=== PATIENT | male | born 1935 | race Caucasian/White ===

== ENCOUNTER 2018-06-13 23:11 | Inpatient (IN) | payer MEDICARE, BC ==
[2018-06-13] MEDS: ONDANSETRON 4 MG INJ IV (23:25)
[2018-06-13] MEDS: morphine 4 MG/ML VIAL IV (23:26)
[2018-06-13 23:46] LABS: ADD MAN DIFF? NO
[2018-06-13 23:49] LABS: WHITE BLOOD COUNT 15.6 10^3/ul (4.8-10.8)
[2018-06-13 23:49] LABS: BASOPHIL # 0.1 10^3/ul (0.0-0.1); BASOPHILS % 0.4 % (0.0-2.0); EOSINOPHILS # 0.2 10^3/ul (0.0-0.5); EOSINOPHILS % 1.3 % (0.0-7.0); HEMATOCRIT 47.7 % (42.0-52.0); HEMOGLOBIN 15.4 g/dl (14.0-18.0); LYMPHOCYTES # 3.6 10^3/ul (0.8-2.9); LYMPHOCYTES % 23.1 % (15.0-51.0); MEAN CORPUSCULAR HGB CONC 32.3 g/dl (32.0-37.0); MEAN CORPUSCULAR VOLUME 92.8 fl (82.0-101.0); MEAN PLATELET VOLUME 8.6 fl (7.4-10.4); MONOCYTE # 0.7 10^3/ul (0.3-0.9); MONOCYTES % 4.6 % (0.0-11.0); NEUTROPHILS % 70.2 % (39.0-77.0); PLATELET COUNT 296 10^3/UL (140-415); RED BLOOD COUNT 5.14 10^6/ul (4.70-6.10); RED CELL DISTRIBUTION WIDTH 13.2 % (11.5-14.5)
[2018-06-14 00:09] LABS: INR 0.86; PROTIME 11.8 Sec (11.9-14.9); PT RATIO 0.9
[2018-06-14 00:10] LABS: PARTIAL THROMBOPLASTIN TIME 28.7 Sec (23.0-35.0)
[2018-06-14] MEDS: morphine 4 MG/ML VIAL IV (00:10)
[2018-06-14 00:14] LABS: ALANINE AMINOTRANSFERASE 30 IU/L (13-69); ALBUMIN 3.8 g/dl (3.3-4.9); ALBUMIN/GLOBULIN RATIO 1.15; ALKALINE PHOSPHATASE 88 IU/L (42-121); ANION GAP 15 (5-13); ASPARTATE AMINO TRANSFERASE 25 IU/L (15-46); BILIRUBIN,INDIRECT 0.2 mg/dl (0-1.1); BILIRUBIN,TOTAL 0.2 mg/dl (0.2-1.3); BLOOD UREA NITROGEN 31 mg/dl (7-20); CALCIUM 9.6 mg/dl (8.4-10.2); CARBON DIOXIDE 21 mmol/L (21-31); CHLORIDE 106 mmol/L (97-110); GLUCOSE 163 mg/dl (70-220); POTASSIUM 4.5 mmol/L (3.5-5.1); SODIUM 142 mmol/L (135-144); TOTAL PROTEIN 7.1 g/dl (6.1-8.1)
[2018-06-14 00:25] LABS: TROPONIN-I < 0.012 ng/ml (0.000-0.120)
[2018-06-14] MEDS: SOD CHLORIDE 0.9% IV (00:41)
[2018-06-14] MEDS: PIPER-TAZO 3.375 GM IV (PMX) 100 ML IVPB (01:04)
[2018-06-14] MEDS: VANCOMYCIN 1 GM (PMX) 250 ML IVPB (02:14)
[2018-06-14] MEDS ORDERED: NACL 0.9% 3 ML SYG IV (02:30)
[2018-06-14] MEDS ORDERED: HYDROCODONE/APAP (5/325) TAB PO (02:30)
[2018-06-14] MEDS: HYDROCODONE/APAP (5/325) TAB PO (03:39)
[2018-06-14] MEDS ORDERED: PENDING SANTYL ORDER FOR WOUND CARE XX (05:00)
[2018-06-14 05:22] LABS: ADD MAN DIFF? NO
[2018-06-14 05:40] LABS: WHITE BLOOD COUNT 18.3 10^3/ul (4.8-10.8)
[2018-06-14 05:40] LABS: BASOPHILS % 0.1 % (0.0-2.0); EOSINOPHILS % 0.1 % (0.0-7.0); HEMATOCRIT 39.3 % (42.0-52.0); HEMOGLOBIN 12.5 g/dl (14.0-18.0); LYMPHOCYTES # 0.7 10^3/ul (0.8-2.9); LYMPHOCYTES % 3.9 % (15.0-51.0); MEAN CORPUSCULAR HEMOGLOBIN 30.3 pg (29.0-33.0); MEAN CORPUSCULAR HGB CONC 31.8 g/dl (32.0-37.0); MEAN CORPUSCULAR VOLUME 95.2 fl (82.0-101.0); MEAN PLATELET VOLUME 8.7 fl (7.4-10.4); MONOCYTE # 0.3 10^3/ul (0.3-0.9); MONOCYTES % 1.8 % (0.0-11.0); NEUTROPHIL # 17.1 10^3/ul (1.6-7.5); NEUTROPHILS % 93.6 % (39.0-77.0); PLATELET COUNT 199 10^3/UL (140-415); RED BLOOD COUNT 4.13 10^6/ul (4.70-6.10); RED CELL DISTRIBUTION WIDTH 13.2 % (11.5-14.5)
[2018-06-14 05:48] LABS: ALANINE AMINOTRANSFERASE 31 IU/L (13-69); ALBUMIN/GLOBULIN RATIO 1.07; ALKALINE PHOSPHATASE 65 IU/L (42-121); ANION GAP 10 (5-13); ASPARTATE AMINO TRANSFERASE 30 IU/L (15-46); BILIRUBIN,INDIRECT 0.4 mg/dl (0-1.1); BILIRUBIN,TOTAL 0.4 mg/dl (0.2-1.3); BLOOD UREA NITROGEN 28 mg/dl (7-20); CALCIUM 8.8 mg/dl (8.4-10.2); CARBON DIOXIDE 25 mmol/L (21-31); CHLORIDE 110 mmol/L (97-110); CHOL/HDL RATIO 4.6 RATIO; CHOLESTEROL 150 mg/dl (100-200); GLUCOSE 99 mg/dl (70-220); HDL CHOLESTEROL 32 mg/dl (31-75); LDL CHOLESTEROL,CALCULATED 88 mg/dl; MAGNESIUM 1.9 mg/dl (1.7-2.5); POTASSIUM 4.5 mmol/L (3.5-5.1); SODIUM 145 mmol/L (135-144); TOTAL PROTEIN 5.8 g/dl (6.1-8.1); TRIGLYCERIDES 148 mg/dl (0-149)
[2018-06-14 06:09] LABS: LACTIC ACID 3.1 mmol/L (0.5-2.0)
[2018-06-14 06:16] LABS: THYROID STIMULATING HORMONE 0.489 MIU/L (0.465-4.680)
[2018-06-14] MEDS: HEPARIN 5,000 UNIT/1 ML VIAL SC ×2 (09:06→21:12)
[2018-06-14] MEDS: CEFEPIME 2GM/50 ML (PMX) 50 ML IVPB ×2 (10:27→20:59)
[2018-06-14] MEDS: BALSAM PERU/CASTOR OIL 60 GM TUBE TOP (20:59)
[2018-06-15] MEDS: ALBUTEROL/IPRATROPIUM (NEB) 3 ML AMP HHN (00:53)
[2018-06-15 07:05] LABS: ADD MAN DIFF? NO
[2018-06-15 07:12] LABS: WHITE BLOOD COUNT 11.8 10^3/ul (4.8-10.8)
[2018-06-15 07:12] LABS: BASOPHILS % 0.3 % (0.0-2.0); EOSINOPHILS # 0.3 10^3/ul (0.0-0.5); EOSINOPHILS % 2.5 % (0.0-7.0); HEMATOCRIT 37.9 % (42.0-52.0); HEMOGLOBIN 12.4 g/dl (14.0-18.0); LYMPHOCYTES # 0.8 10^3/ul (0.8-2.9); LYMPHOCYTES % 7.1 % (15.0-51.0); MEAN CORPUSCULAR HGB CONC 32.7 g/dl (32.0-37.0); MEAN CORPUSCULAR VOLUME 91.8 fl (82.0-101.0); MEAN PLATELET VOLUME 8.7 fl (7.4-10.4); MONOCYTE # 0.4 10^3/ul (0.3-0.9); MONOCYTES % 3.1 % (0.0-11.0); NEUTROPHIL # 10.2 10^3/ul (1.6-7.5); NEUTROPHILS % 86.7 % (39.0-77.0); PLATELET COUNT 201 10^3/UL (140-415); RED BLOOD COUNT 4.13 10^6/ul (4.70-6.10); RED CELL DISTRIBUTION WIDTH 13.4 % (11.5-14.5)
[2018-06-15 07:50] LABS: ANION GAP 10 (5-13); BLOOD UREA NITROGEN 24 mg/dl (7-20); CALCIUM 9.1 mg/dl (8.4-10.2); CARBON DIOXIDE 23 mmol/L (21-31); CHLORIDE 108 mmol/L (97-110); CREATININE 0.78 mg/dl (0.61-1.24); GLUCOSE 101 mg/dl (70-220); PHOSPHORUS 2.6 mg/dl (2.5-4.9); POTASSIUM 4.1 mmol/L (3.5-5.1); SODIUM 141 mmol/L (135-144)
[2018-06-15] MEDS: CEFEPIME 2GM/50 ML (PMX) 50 ML IVPB ×2 (08:13→20:55)
[2018-06-15] MEDS: BALSAM PERU/CASTOR OIL 60 GM TUBE TOP (08:14)
[2018-06-15] MEDS: ENOXAPARIN 30 MG/0.3 ML SYG SC (08:19)
[2018-06-15] MEDS: MUPIROCIN 2% 22 GM OINT TOP (20:55)
[2018-06-15] MEDS: traZODone 100 MG TAB GTB (22:35)
[2018-06-16] MEDS: MEMANTINE 10 MG TAB GTB (08:17)
[2018-06-16] MEDS: CEFEPIME 2GM/50 ML (PMX) 50 ML IVPB ×2 (08:17→21:16)
[2018-06-16] MEDS: MUPIROCIN 2% 22 GM OINT TOP ×2 (08:18→21:22)
[2018-06-16] MEDS: BALSAM PERU/CASTOR OIL 60 GM TUBE TOP (08:18)
[2018-06-16] MEDS: ENOXAPARIN 30 MG/0.3 ML SYG SC (08:26)
[2018-06-16] MEDS ORDERED: MEMANTINE 10 MG TAB GTB (09:00)
[2018-06-16] MEDS: ACETAMINOPHEN 325 MG TAB PO (21:15)
[2018-06-16] MEDS: BACLOFEN 10 MG TAB GTB (21:16)
[2018-06-16] MEDS: traZODone 50 MG TAB GTB (23:44)
[2018-06-17] MEDS: BACLOFEN 10 MG TAB GTB ×3 (06:33→21:40)
[2018-06-17] MEDS: BALSAM PERU/CASTOR OIL 60 GM TUBE TOP (08:43)
[2018-06-17] MEDS: CEFEPIME 2GM/50 ML (PMX) 50 ML IVPB ×2 (08:55→21:40)
[2018-06-17] MEDS: MEMANTINE 10 MG TAB GTB (08:55)
[2018-06-17] MEDS: MUPIROCIN 2% 22 GM OINT TOP ×2 (08:56→21:41)
[2018-06-17] MEDS: ENOXAPARIN 30 MG/0.3 ML SYG SC (09:43)
[2018-06-17] MEDS ORDERED: SERTRALINE 50 MG TAB (16:50)
[2018-06-17] MEDS: SERTRALINE 50 MG TAB PO (16:53)
[2018-06-17] MEDS: traZODone 50 MG TAB GTB (21:41)
[2018-06-18] MEDS: BALSAM PERU/CASTOR OIL 60 GM TUBE TOP (08:07)
[2018-06-18] MEDS: SERTRALINE 50 MG TAB PO (08:18)
[2018-06-18] MEDS: CEFEPIME 2GM/50 ML (PMX) 50 ML IVPB ×2 (08:18→20:14)
[2018-06-18] MEDS: BACLOFEN 10 MG TAB GTB ×3 (08:18→20:14)
[2018-06-18] MEDS: MEMANTINE HCL 28 MG GTB (08:19)
[2018-06-18] MEDS: MUPIROCIN 2% 22 GM OINT TOP ×2 (08:19→21:09)
[2018-06-18] MEDS: ENOXAPARIN 30 MG/0.3 ML SYG SC (08:39)
[2018-06-18] MEDS ORDERED: MEMANTINE 10 MG TAB GTB (09:00)
[2018-06-18] MEDS: traZODone 50 MG TAB GTB (20:14)
[2018-06-18] MEDS: ACETAMINOPHEN 325 MG TAB PO (20:18)
[2018-06-19 06:09] LABS: ADD MAN DIFF? NO
[2018-06-19 06:20] LABS: BASOPHILS % 0.3 % (0.0-2.0); EOSINOPHILS # 0.1 10^3/ul (0.0-0.5); EOSINOPHILS % 1.4 % (0.0-7.0); HEMATOCRIT 37.7 % (42.0-52.0); HEMOGLOBIN 12.5 g/dl (14.0-18.0); LYMPHOCYTES # 1.7 10^3/ul (0.8-2.9); LYMPHOCYTES % 22.5 % (15.0-51.0); MEAN CORPUSCULAR HEMOGLOBIN 30.1 pg (29.0-33.0); MEAN CORPUSCULAR HGB CONC 33.2 g/dl (32.0-37.0); MEAN CORPUSCULAR VOLUME 90.8 fl (82.0-101.0); MEAN PLATELET VOLUME 8.5 fl (7.4-10.4); MONOCYTE # 0.5 10^3/ul (0.3-0.9); MONOCYTES % 6.1 % (0.0-11.0); NEUTROPHIL # 5.4 10^3/ul (1.6-7.5); NEUTROPHILS % 69.2 % (39.0-77.0); PLATELET COUNT 220 10^3/UL (140-415); RED BLOOD COUNT 4.15 10^6/ul (4.70-6.10); RED CELL DISTRIBUTION WIDTH 12.7 % (11.5-14.5)
[2018-06-19 06:20] LABS: WHITE BLOOD COUNT 7.7 10^3/ul (4.8-10.8)
[2018-06-19 06:35] LABS: ANION GAP 8 (5-13); BLOOD UREA NITROGEN 29 mg/dl (7-20); CALCIUM 9.4 mg/dl (8.4-10.2); CARBON DIOXIDE 27 mmol/L (21-31); CHLORIDE 105 mmol/L (97-110); GLUCOSE 140 mg/dl (70-220); MAGNESIUM 2.4 mg/dl (1.7-2.5); PHOSPHORUS 3.2 mg/dl (2.5-4.9); SODIUM 140 mmol/L (135-144)
[2018-06-19] MEDS: ONDANSETRON 4 MG INJ IV ×2 (07:32→19:59)
[2018-06-19] MEDS: BACLOFEN 10 MG TAB GTB ×3 (07:35→22:48)
[2018-06-19] MEDS: SERTRALINE 50 MG TAB PO (09:36)
[2018-06-19] MEDS: MEMANTINE HCL 28 MG GTB (09:36)
[2018-06-19] MEDS: CEFEPIME 2GM/50 ML (PMX) 50 ML IVPB ×2 (09:37→22:49)
[2018-06-19] MEDS: MUPIROCIN 2% 22 GM OINT TOP ×2 (09:52→22:49)
[2018-06-19] MEDS: BALSAM PERU/CASTOR OIL 60 GM TUBE TOP (09:52)
[2018-06-19] MEDS: ENOXAPARIN 30 MG/0.3 ML SYG SC (09:52)
[2018-06-19] MEDS: DOCUSATE SODIUM 10 MG/ML (10ML CUP) GTB (18:44)
[2018-06-20] MEDS: traZODone 50 MG TAB GTB (01:23)
[2018-06-20] MEDS: BACLOFEN 10 MG TAB GTB ×3 (07:21→21:41)
[2018-06-20] MEDS: DOCUSATE SODIUM 10 MG/ML (10ML CUP) GTB (07:21)
[2018-06-20] MEDS: CEFEPIME 2GM/50 ML (PMX) 50 ML IVPB ×2 (08:47→21:41)
[2018-06-20] MEDS: SERTRALINE 50 MG TAB PO (08:49)
[2018-06-20] MEDS: MEMANTINE HCL 28 MG GTB (08:49)
[2018-06-20] MEDS: BALSAM PERU/CASTOR OIL 60 GM TUBE TOP (09:05)
[2018-06-20] MEDS: ENOXAPARIN 30 MG/0.3 ML SYG SC (09:05)
[2018-06-20] MEDS: MUPIROCIN 2% 22 GM OINT TOP ×2 (09:05→21:41)
[2018-06-20] MEDS ORDERED: INSULIN ASPART [NOVOLOG] 3 ML PEN SC (22:00)
[2018-06-21] MEDS: traZODone 50 MG TAB GTB (01:09)
[2018-06-21] MEDS: BACLOFEN 10 MG TAB GTB ×3 (07:42→20:25)
[2018-06-21] MEDS: MEMANTINE HCL 28 MG GTB (09:17)
[2018-06-21] MEDS: MUPIROCIN 2% 22 GM OINT TOP ×2 (09:18→20:27)
[2018-06-21] MEDS: BALSAM PERU/CASTOR OIL 60 GM TUBE TOP (09:18)
[2018-06-21] MEDS: SERTRALINE 50 MG TAB PO (09:18)
[2018-06-21] MEDS: ENOXAPARIN 30 MG/0.3 ML SYG SC (09:28)
[2018-06-21] MEDS: CEFEPIME 2GM/50 ML (PMX) 50 ML IVPB ×2 (12:28→23:18)
[2018-06-22] MEDS: BACLOFEN 10 MG TAB GTB ×3 (06:24→21:26)
[2018-06-22] MEDS: SERTRALINE 50 MG TAB PO (09:16)
[2018-06-22] MEDS: MEMANTINE HCL 28 MG GTB (09:17)
[2018-06-22] MEDS: MUPIROCIN 2% 22 GM OINT TOP ×2 (09:18→21:27)
[2018-06-22] MEDS: BALSAM PERU/CASTOR OIL 60 GM TUBE TOP (09:18)
[2018-06-22] MEDS: CEFEPIME 2GM/50 ML (PMX) 50 ML IVPB ×2 (09:21→21:26)
[2018-06-22] MEDS: ENOXAPARIN 30 MG/0.3 ML SYG SC (09:33)
[2018-06-23] MEDS: BACLOFEN 10 MG TAB GTB ×3 (06:47→20:43)
[2018-06-23] MEDS: SERTRALINE 50 MG TAB PO (09:24)
[2018-06-23] MEDS: CEFEPIME 2GM/50 ML (PMX) 50 ML IVPB ×2 (09:24→20:45)
[2018-06-23] MEDS: MEMANTINE HCL 28 MG GTB (09:24)
[2018-06-23] MEDS: BALSAM PERU/CASTOR OIL 60 GM TUBE TOP (09:25)
[2018-06-23] MEDS: MUPIROCIN 2% 22 GM OINT TOP ×2 (09:25→20:44)
[2018-06-23] MEDS: ENOXAPARIN 30 MG/0.3 ML SYG SC (09:40)
[2018-06-23] MEDS: AMLODIPINE 5 MG TAB PO (16:17)
[2018-06-24] MEDS: SERTRALINE 50 MG TAB PO (09:26)
[2018-06-24] MEDS: AMLODIPINE 5 MG TAB PO (09:26)
[2018-06-24] MEDS: BACLOFEN 10 MG TAB GTB ×3 (09:26→21:03)
[2018-06-24] MEDS: MEMANTINE HCL 28 MG GTB (09:26)
[2018-06-24] MEDS: BALSAM PERU/CASTOR OIL 60 GM TUBE TOP (09:27)
[2018-06-24] MEDS: MUPIROCIN 2% 22 GM OINT TOP ×2 (09:27→21:03)
[2018-06-24] MEDS: ENOXAPARIN 30 MG/0.3 ML SYG SC (09:36)
[2018-06-24] MEDS: CEFEPIME 2GM/50 ML (PMX) 50 ML IVPB ×2 (09:42→21:03)
[2018-06-24] MEDS: traZODone 50 MG TAB GTB (22:24)
[2018-06-25] MEDS: BACLOFEN 10 MG TAB GTB ×3 (06:58→21:00)
[2018-06-25] MEDS: SERTRALINE 50 MG TAB PO (09:07)
[2018-06-25] MEDS: CEFEPIME 2GM/50 ML (PMX) 50 ML IVPB ×2 (09:07→21:01)
[2018-06-25] MEDS: AMLODIPINE 5 MG TAB PO (09:07)
[2018-06-25] MEDS: BALSAM PERU/CASTOR OIL 60 GM TUBE TOP (09:08)
[2018-06-25] MEDS: MEMANTINE HCL 28 MG GTB (09:08)
[2018-06-25] MEDS: MUPIROCIN 2% 22 GM OINT TOP ×2 (09:08→21:01)
[2018-06-25] MEDS: ENOXAPARIN 30 MG/0.3 ML SYG SC (09:53)
[2018-06-26 05:01] LABS: ADD MAN DIFF? NO
[2018-06-26 05:09] LABS: WHITE BLOOD COUNT 8.7 10^3/ul (4.8-10.8)
[2018-06-26 05:09] LABS: BASOPHILS % 0.5 % (0.0-2.0); EOSINOPHILS # 0.3 10^3/ul (0.0-0.5); EOSINOPHILS % 2.9 % (0.0-7.0); HEMATOCRIT 40.1 % (42.0-52.0); HEMOGLOBIN 13.1 g/dl (14.0-18.0); LYMPHOCYTES # 1.4 10^3/ul (0.8-2.9); LYMPHOCYTES % 16.4 % (15.0-51.0); MEAN CORPUSCULAR HEMOGLOBIN 30.1 pg (29.0-33.0); MEAN CORPUSCULAR HGB CONC 32.7 g/dl (32.0-37.0); MEAN CORPUSCULAR VOLUME 92.2 fl (82.0-101.0); MEAN PLATELET VOLUME 8.9 fl (7.4-10.4); MONOCYTE # 0.4 10^3/ul (0.3-0.9); MONOCYTES % 4.3 % (0.0-11.0); NEUTROPHIL # 6.6 10^3/ul (1.6-7.5); NEUTROPHILS % 75.6 % (39.0-77.0); PLATELET COUNT 178 10^3/UL (140-415); RED BLOOD COUNT 4.35 10^6/ul (4.70-6.10); RED CELL DISTRIBUTION WIDTH 12.6 % (11.5-14.5)
[2018-06-26 05:57] LABS: ANION GAP 10 (5-13); BLOOD UREA NITROGEN 37 mg/dl (7-20); CALCIUM 9.2 mg/dl (8.4-10.2); CARBON DIOXIDE 27 mmol/L (21-31); CHLORIDE 107 mmol/L (97-110); CREATININE 0.71 mg/dl (0.61-1.24); GLUCOSE 137 mg/dl (70-220); POTASSIUM 3.8 mmol/L (3.5-5.1); SODIUM 144 mmol/L (135-144)
[2018-06-26] MEDS: BACLOFEN 10 MG TAB GTB ×3 (06:25→20:25)
[2018-06-26] MEDS: AMLODIPINE 5 MG TAB PO (09:53)
[2018-06-26] MEDS: SERTRALINE 50 MG TAB PO (09:53)
[2018-06-26] MEDS: CEFEPIME 2GM/50 ML (PMX) 50 ML IVPB ×2 (09:54→20:24)
[2018-06-26] MEDS: MEMANTINE HCL 28 MG GTB (09:54)
[2018-06-26] MEDS: BALSAM PERU/CASTOR OIL 60 GM TUBE TOP (09:55)
[2018-06-26] MEDS: MUPIROCIN 2% 22 GM OINT TOP ×2 (09:55→20:24)
[2018-06-26] MEDS: ENOXAPARIN 30 MG/0.3 ML SYG SC (09:59)
[2018-06-26] MEDS ORDERED: VITAMIN A & D 5 GM OINT PACKET TOP (15:50)
[2018-06-26] MEDS: ACETAMINOPHEN 325 MG TAB PO (18:58)
[2018-06-27] MEDS: ALBUTEROL/IPRATROPIUM (NEB) 3 ML AMP HHN (01:10)
[2018-06-27] MEDS: BACLOFEN 10 MG TAB GTB ×3 (09:42→21:32)
[2018-06-27] MEDS: AMLODIPINE 5 MG TAB PO (09:43)
[2018-06-27] MEDS: SERTRALINE 50 MG TAB PO (09:43)
[2018-06-27] MEDS: BALSAM PERU/CASTOR OIL 60 GM TUBE TOP (09:44)
[2018-06-27] MEDS: MUPIROCIN 2% 22 GM OINT TOP ×2 (09:44→21:33)
[2018-06-27] MEDS: ENOXAPARIN 30 MG/0.3 ML SYG SC (10:08)
[2018-06-27] MEDS: MEMANTINE HCL 28 MG GTB (10:17)
[2018-06-27] MEDS: CEFEPIME 2GM/50 ML (PMX) 50 ML IVPB ×2 (10:17→21:31)
[2018-06-27] MEDS: ACETAMINOPHEN 325 MG TAB PO (15:26)
[2018-06-28] MEDS: ALBUTEROL/IPRATROPIUM (NEB) 3 ML AMP HHN (00:08)
[2018-06-28] MEDS: BACLOFEN 10 MG TAB GTB ×2 (06:47→12:37)
[2018-06-28] MEDS: SERTRALINE 50 MG TAB PO (08:53)
[2018-06-28] MEDS: AMLODIPINE 5 MG TAB PO (08:54)
[2018-06-28] MEDS: BALSAM PERU/CASTOR OIL 60 GM TUBE TOP (08:55)
[2018-06-28] MEDS: MUPIROCIN 2% 22 GM OINT TOP (08:55)
[2018-06-28] MEDS: CEFEPIME 2GM/50 ML (PMX) 50 ML IVPB (08:57)
[2018-06-28] MEDS: MEMANTINE HCL 28 MG GTB (08:57)
[2018-06-28] MEDS: ENOXAPARIN 30 MG/0.3 ML SYG SC (09:00)
== END 2018-06-28 21:15 | DRG 871 ==
LOC: 2NE 06-25 19:03 → MS1 06-26 00:34 → E/R 23:11 → TEL 06-14 01:15
DX: A41.9 Sepsis, unspecified organism (principal); J69.0 Pneumonitis due to inhalation of food and vomit; R53.2 Functional quadriplegia; E44.0 Moderate protein-calorie malnutrition; Z68.1 Body mass index [BMI] 19.9 or less, adult; K94.23 Gastrostomy malfunction; R47.01 Aphasia; K56.7 Ileus, unspecified; F03.90 Unspecified dementia, unspecified severity, without behavioral disturbance, psychotic disturbance, mood disturbance, and anxiety; Z66 Do not resuscitate; I10 Essential (primary) hypertension; E03.9 Hypothyroidism, unspecified; K59.00 Constipation, unspecified; R13.10 Dysphagia, unspecified; E88.09 Other disorders of plasma-protein metabolism, not elsewhere classified; R56.9 Unspecified convulsions; G20 Parkinson's disease; H91.90 Unspecified hearing loss, unspecified ear; Z85.46 Personal history of malignant neoplasm of prostate; Z95.5 Presence of coronary angioplasty implant and graft
CPT/HCPCS: 36415; 71045; 74018; 80048; 80053; 80061; 83036; 83605; 83735; 84100; 84443; 84484; 85025; 85610; 85730; 87040; 87081; 93005; 94640; 94664; 96374; 96375; 97161; 99291-25